=== PATIENT | male | born 1975 | race American Indian/Alaskan Native ===

== ENCOUNTER 2019-03-03 10:56 | Emergency (ER) | payer SELFPAY ==
[2019-03-03] MEDS ORDERED: ZOFRAN IV ONE (11:47)
[2019-03-03] MEDS ORDERED: NACL 0.9% 1000 ML 1,000 ML IV ONE ×3 (11:47→14:03)
--- NOTE | 2019-03-03 11:55 | Emergency Department Report ---
ED N/V/D HPI - General Chief complaint: Nausea/Vomiting/Diarrhea Stated complaint: VOMIT/FAINTED YESTERDAY Time Seen by Provider: 03/03/19 11:47 Source: patient Mode of arrival: Ambulatory Limitations: No Limitations - History of Present Illness Initial comments: 44-year-old male with no past medical or surgical history presents to the hospital with complaints of nausea, vomiting, and diarrhea since yesterday. Patient works outside in hot weather and typically drinks lots of water. Yesterday while at work he had at least 4 episodes of vomiting and then was sent home. He continued to have vomiting and diarrhea and states he had a syncopal episode with associated lightheadedness. He denies headache, chest pain, shortness of breath, abdominal pain, fevers, melena, hematochezia, hematemesis, sick contacts, recent travel, or recent antibiotic use. - Related Data Previous Rx's Medication Instructions Recorded Last Taken Type Ondansetron [Zofran Odt] 4 mg PO Q8HR PRN #20 tab.[email or web address] 03/03/19 Unknown Rx Allergies Allergy/AdvReac Type Severity Reaction Status Date / Time No Known Allergies Allergy Unverified 03/03/19 11:01 ED Review of Systems ROS: Stated complaint: VOMIT/FAINTED YESTERDAY Other details as noted in HPI Comment: All other systems reviewed and negative ED Past Medical Hx - Past Medical History Previous Medical History?: No - Surgical History Past Surgical History?: No - Social History Smoking Status: Never Smoker Substance Use Type: Alcohol - Medications Home Medications: Home Medications Medication Instructions Recorded Confirmed Last Taken Type Ondansetron [Zofran Odt] 4 mg PO Q8HR PRN #20 tab.[email or web address] 03/03/19 Unknown Rx ED Physical Exam - General Limitations: No Limitations - Other Other exam information: General: No limitations, patient is alert in no acute distress Head exam: Atraumatic, normocephalic Eyes exam: Normal appearance, pupils equal reactive to light, extraocular movements intact ENT: Dry mucous membrane Neck exam: Normal inspection, full range of motion Respiratory exam: Clear to auscultation bilateral, no wheezes, rales, crackles Cardiovascular: Normal rate and rhythm, normal heart sounds Abdomen: Soft, nondistended, and nontender, with normal bowel sounds, no rebound, or guarding Extremity: Full range of motion normal inspection no deformity Back: Normal Inspection, full range of motion, no tenderness Neurologic: Alert, oriented x3, cranial nerves intact, no motor or sensory deficit Psychiatric: normal affect, normal mood Skin: Warm, dry, intact. First-degree sunburn skin ED Course Vital Signs 03/03/19 03/03/19 03/03/19 11:01 12:07 12:09 Temperature 97.8 F Pulse Rate 82 66 Respiratory 18 18 Rate Blood Pressure 129/84 Blood Pressure 121/67 [Left] O2 Sat by Pulse 95 95 96 Oximetry 03/03/19 03/03/19 03/03/19 12:10 12:16 12:30 Temperature Pulse Rate Respiratory 18 Rate Blood Pressure 121/67 121/67 Blood Pressure [Left] O2 Sat by Pulse 96 96 98 Oximetry 03/03/19 03/03/19 03/03/19 12:46 13:00 13:16 Temperature Pulse Rate 68 54 L 52 L Respiratory 23 15 19 Rate Blood Pressure 117/76 117/76 126/84 Blood Pressure [Left] O2 Sat by Pulse 95 98 98 Oximetry 03/03/19 03/03/19 03/03/19 13:30 13:46 14:00 Temperature Pulse Rate 64 64 56 L Respiratory 18 21 15 Rate Blood Pressure 126/84 129/62 134/72 Blood Pressure [Left] O2 Sat by Pulse 96 97 97 Oximetry 03/03/19 03/03/19 03/03/19 14:16 14:30 14:46 Temperature Pulse Rate 72 61 Respiratory 17 21 30 H Rate Blood Pressure 129/62 138/82 138/82 Blood Pressure [Left] O2 Sat by Pulse 98 96 96 Oximetry 03/03/19 03/03/19 15:00 15:16 Temperature Pulse Rate Respiratory Rate Blood Pressure 131/89 131/89 Blood Pressure [Left] O2 Sat by Pulse 98 95 Oximetry ED Medical Decision Making - Lab Data Result diagrams: 03/03/19 11:51 03/03/19 11:51 Lab Results 03/03/19 03/03/19 03/03/19 Range/Units 11:51 11:51 11:51 WBC 8.8 (4.5-11.0) K/mm3 RBC 4.63 (3.65-5.03) M/mm3 Hgb 15.3 H (11.8-15.2) gm/dl Hct 42.8 (35.5-45.6) % MCV 93 (84-94) fl MCH 33 H (28-32) pg MCHC 36 H (32-34) % RDW 13.6 (13.2-15.2) % Plt Count 294 (140-440) K/mm3 Lymph % (Auto) 33.3 (13.4-35.0) % [place] % (Auto) 5.3 (0.0-7.3) % Eos % (Auto) 4.9 H (0.0-4.3) % Baso % (Auto) 0.8 (0.0-1.8) % Lymph # 2.9 (1.2-5.4) K/mm3 [place] # 0.5 (0.0-0.8) K/mm3 Eos # 0.4 (0.0-0.4) K/mm3 Baso # 0.1 (0.0-0.1) K/mm3 Seg Neutrophils % 55.7 (40.0-70.0) % Seg Neutrophils # 4.9 (1.8-7.7) K/mm3 Sodium 140 (137-145) mmol/L Potassium 4.6 (3.6-5.0) mmol/L Chloride 107.3 H (98-107) mmol/L Carbon Dioxide 22 (22-30) mmol/L Anion Gap 15 mmol/L BUN 19 (9-20) mg/dL Creatinine 0.9 (0.8-1.5) mg/dL Estimated GFR > 60 ml/min BUN/Creatinine Ratio 21 % Glucose 96 (75-100) mg/dL Calcium 9.1 (8.4-10.2) mg/dL Magnesium 2.20 (1.7-2.3) mg/dL Total Bilirubin 0.40 (0.1-1.2) mg/dL AST 21 (5-40) units/L ALT 23 (7-56) units/L Alkaline Phosphatase 100 (35-129) units/L Total Protein 7.2 (6.3-8.2) g/dL Albumin 4.3 (3.9-5) g/dL Albumin/Globulin Ratio 1.5 % Lipase 30 (13-60) units/L Urine Color (Yellow) Urine Turbidity (Clear) Urine pH (5.0-7.0) Ur Specific [place] (1.003-1.030) Urine Protein (Negative) mg/dL Urine Glucose (UA) (Negative) mg/dL Urine Ketones (Negative) mg/dL Urine Blood (Negative) Urine Nitrite (Negative) Urine Bilirubin (Negative) Urine Urobilinogen (<2.0) mg/dL Ur Leukocyte Esterase (Negative) Urine WBC (Auto) (0.0-6.0) /HPF Urine RBC (Auto) (0.0-6.0) /HPF Urine Mucus /HPF 03/03/19 Range/Units 14:41 WBC (4.5-11.0) K/mm3 RBC (3.65-5.03) M/mm3 Hgb (11.8-15.2) gm/dl Hct (35.5-45.6) % MCV (84-94) fl MCH (28-32) pg MCHC (32-34) % RDW (13.2-15.2) % Plt Count (140-440) K/mm3 Lymph % (Auto) (13.4-35.0) % [place] % (Auto) (0.0-7.3) % Eos % (Auto) (0.0-4.3) % Baso % (Auto) (0.0-1.8) % Lymph # (1.2-5.4) K/mm3 [place] # (0.0-0.8) K/mm3 Eos # (0.0-0.4) K/mm3 Baso # (0.0-0.1) K/mm3 Seg Neutrophils % (40.0-70.0) % Seg Neutrophils # (1.8-7.7) K/mm3 Sodium (137-145) mmol/L Potassium (3.6-5.0) mmol/L Chloride (98-107) mmol/L Carbon Dioxide (22-30) mmol/L Anion Gap mmol/L BUN (9-20) mg/dL Creatinine (0.8-1.5) mg/dL Estimated GFR ml/min BUN/Creatinine Ratio % Glucose (75-100) mg/dL Calcium (8.4-10.2) mg/dL Magnesium (1.7-2.3) mg/dL Total Bilirubin (0.1-1.2) mg/dL AST (5-40) units/L ALT (7-56) units/L Alkaline Phosphatase (35-129) units/L Total Protein (6.3-8.2) g/dL Albumin (3.9-5) g/dL Albumin/Globulin Ratio % Lipase (13-60) units/L Urine Color Yellow (Yellow) Urine Turbidity Clear (Clear) Urine pH 6.0 (5.0-7.0) Ur Specific [place] 1.020 (1.003-1.030) Urine Protein <15 mg/dl (Negative) mg/dL Urine Glucose (UA) Neg (Negative) mg/dL Urine Ketones Neg (Negative) mg/dL Urine Blood Neg (Negative) Urine Nitrite Neg (Negative) Urine Bilirubin Neg (Negative) Urine Urobilinogen < 2.0 (<2.0) mg/dL Ur Leukocyte Esterase Neg (Negative) Urine WBC (Auto) < 1.0 (0.0-6.0) /HPF Urine RBC (Auto) 3.0 (0.0-6.0) /HPF Urine Mucus Few /HPF - EKG Data -: EKG Interpreted by [facility] EKG shows normal: sinus rhythm, ST-T waves (no stemi) Rate: normal - EKG Data When compared to previous EKG there are: previous EKG unavailable - Medical Decision Making Patient required greater than 2 L of normal saline to produce urine. He feels much better with hydration and Zofran and is tolerating by mouth intake. Discharged and treated for gastroenteritis. - Differential Diagnosis gastroenteritis, pancreatitis, dehydration, arrhythmia, electrolyte abnorma Critical Care Time: No Critical care attestation.: If time is entered above; I have spent that time in minutes in the direct care of this critically ill patient, excluding procedure time. ED Disposition Clinical Impression: Gastroenteritis, Dehydration Disposition: DC-01 TO HOME OR SELFCARE Is pt being admited?: No Does the pt Need Aspirin: No Condition: Stable Instructions: Gastroenteritis (ED), Dehydration (ED) Additional Instructions: Take the medication as prescribed. Follow up with your doctor or the clinic/doctor provided. Return if symptoms worsen as indicated by your disc harge instructions Prescriptions: Ondansetron [Zofran Odt] 4 mg PO Q8HR PRN #20 tab.rapdis PRN Reason: Nausea And Vomiting Referrals: VINNY QURESHI MD [Primary Care Provider] - 3-5 Days Time of Disposition: 16:06
[2019-03-03 12:07] LABS: Basophils # (Auto) 0.1 K/mm3 (0.0-0.1); Basophils % (Auto) 0.8 % (0.0-1.8); Eosinophils # (Auto) 0.4 K/mm3 (0.0-0.4); Eosinophils % (Auto) 4.9 % (0.0-4.3); Lymphocytes # (Auto) 2.9 K/mm3 (1.2-5.4); Lymphocytes % (Auto) 33.3 % (13.4-35.0); Mean Corpuscular HGB Conc 36 % (32-34); Mean Corpuscular Volume 93 fl (84-94); Monocytes # (Auto) 0.5 K/mm3 (0.0-0.8); Monocytes % (Auto) 5.3 % (0.0-7.3); Platelet Count 294 K/mm3 (140-440); Red Blood Count 4.63 M/mm3 (3.65-5.03); Red Cell Distribution Width 13.6 % (13.2-15.2)
[2019-03-03 12:17] LABS: Hematocrit 42.8 % (35.5-45.6); Hemoglobin 15.3 gm/dl (11.8-15.2)
[2019-03-03 12:23] LABS: Alanine Aminotransferase 23 units/L (7-56); Albumin 4.3 g/dL (3.9-5); BUN/Creatinine Ratio 21; Blood Urea Nitrogen 19 mg/dL (9-20); Calcium 9.1 mg/dL (8.4-10.2); Hemolysis Index 58
[2019-03-03 14:57] LABS: Bilirubin,Urine NEG (Negative); Blood,Urine NEG (Negative); Color,Urine Yellow (Yellow); Mucus,Urine FEW /HPF; Protein,Urine <15 mg/dL mg/dL (Negative); Urobilinogen,Urine < 2.0 mg/dL (<2.0); WBC,Urine < 1.0 /HPF (0.0-6.0)
[2019-03-03 16:20] VITALS: BP 132/78
== END 2019-03-03 16:20 | disposition home or self-care (01) ==
LOC: ED 10:56
DX: K52.9 Noninfective gastroenteritis and colitis, unspecified (principal); E86.0 Dehydration
CPT/HCPCS: 36415; 80053; 81001; 83690; 83735; 85025; 93005; 93010; 96361; 96374; 99283; J2405; J7030